=== PATIENT | female | born 1975 | race Caucasian/White ===

== ENCOUNTER 2023-10-17 18:23 | Outpatient (CLI) | payer OTHER, SELFPAY ==
--- NOTE | 2023-11-14 14:38 | ONC.NURNOTE ---
[facility] has attempted to contact patient multiple times with no return phone call. PCP notified.
== END 2023-10-17 18:24 | disposition home or self-care (01) ==
PROVIDERS: PCP Nurse Practitioner Family; Visit Provider Nurse Practitioner Family
DX: R06.09 Other forms of dyspnea (principal); R00.2 Palpitations; R53.83 Other fatigue
CPT/HCPCS: 83540; 83550; 84443; 85025

== ENCOUNTER 2025-04-15 10:08 | Outpatient (CLI) | payer OTHER, SELFPAY | END 2025-04-15 10:09 | disposition home or self-care (01) | PROVIDERS: PCP Nurse Practitioner Family; Visit Provider Nurse Practitioner Family | DX: Z01.818 Encounter for other preprocedural examination (principal) | CPT/HCPCS: 80053; 85025 ==

== ENCOUNTER 2025-04-17 06:31 | Outpatient (CLI) | payer OTHER, SELFPAY ==
--- NOTE | 2025-04-17 07:42 | P.ANES_ITS ---
Anesthesia Charges Start Date/Time Anesthesia Start Date: 04/17/25 Anesthesia Start Time: 07:12 Stop Date/Time Anesthesia Stop Date: 04/17/25 Anesthesia Stop Time: 07:39 Coding CPT Codes CPT Codes: DAVID LWR INTST SCR COLSC - 12006 ([id number]) P1 - NORMAL HEALTHY PATIENT, QK - LOOKBACK COORDINATOR 2-4 CNCRNT ANES PROC, QX - BUSINESS CONTINUITY ANALYST SVC W/ MED DIRECTION
--- NOTE | 2025-04-17 07:42 | W.ANESCHARGE ---
Anesthesia Charges Start Date/Time Anesthesia Start Date: 04/17/25 Anesthesia Start Time: 07:12 Stop Date/Time Anesthesia Stop Date: 04/17/25 Anesthesia Stop Time: 07:39 Coding CPT Codes CPT Codes: DAVID LWR INTST SCR COLSC - 36832 ([id number]) P1 - NORMAL HEALTHY PATIENT, QK - BOOK STORE ASSOCIATE 2-4 CNCRNT ANES PROC, QX - TOP DYEING MACHINE LOADER SVC W/ MED DIRECTION
--- NOTE | 2025-04-17 08:32 | P.ANES_ITS ---
Anesthesia Charges Start Date/Time Anesthesia Start Date: 04/17/25 Anesthesia Start Time: 07:12 Stop Date/Time Anesthesia Stop Date: 04/17/25 Anesthesia Stop Time: 07:39 Coding CPT Codes CPT Codes: DAVID LWR INTST SCR COLSC - 90051 ([id number]) P1 - NORMAL HEALTHY PATIENT, QK - DELIVERY DRIVER/CUSTOMER SERVICE 2-4 CNCRNT ANES PROC, QX - MEDICAL HOSPITAL SALES SVC W/ MED DIRECTION
--- NOTE | 2025-04-17 08:32 | W.ANESCHARGE ---
Anesthesia Charges Start Date/Time Anesthesia Start Date: 04/17/25 Anesthesia Start Time: 07:12 Stop Date/Time Anesthesia Stop Date: 04/17/25 Anesthesia Stop Time: 07:39 Coding CPT Codes CPT Codes: DAVID LWR INTST SCR COLSC - 24227 ([id number]) P1 - NORMAL HEALTHY PATIENT, QK - RAILROAD WORKER 2-4 CNCRNT ANES PROC, QX - UNIT SUPPORT REPRESENTATIVE SVC W/ MED DIRECTION
== END 2025-04-17 06:32 | disposition home or self-care (01) ==
PROVIDERS: PCP Nurse Practitioner Family; Visit Provider Surgery
DX: Z12.11 Encounter for screening for malignant neoplasm of colon (principal); K64.8 Other hemorrhoids; K57.30 Diverticulosis of large intestine without perforation or abscess without bleeding
CPT/HCPCS: 00812; 45378; J2704

== ENCOUNTER 2025-05-05 06:17 | Day surgery (SDC) | payer OTHER, SELFPAY ==
[2025-05-05] VITALS (24 sets, daily range): BP systolic 100–159; BP diastolic 52–90; PULSE 60–98; RESP 12–18; TEMP 36.2–36.8; O2SAT 88–100; BMI 27.1
[2025-05-05 06:41] LABS: Ur HCG Qualitative* Negative (Negative)
[2025-05-05] MEDS: SODIUM CHLORIDE 0.9 % (FLUSH) 10 ML SYRINGE IVF (07:00)
--- NOTE | 2025-05-05 07:22 | W.PM.H&PU ---
History & Physical Update History & Physical Update H&P Reviewed and patient assessed: No changes noted
--- NOTE | 2025-05-05 07:22 | PM.GSPRC ---
Operative Note Date of procedure: 05/05/25 Pre-op diagnosis: 1. Prolapsing external and internal hemorrhoids. Post-op diagnosis: Same Type of Procedure: 1. Three quadrant hemorrhoidectomy. Indications: 49-year-old female was seen in clinic for evaluation of hemorrhoids. Patient stated that for years she has been having trouble with enlarged hemorrhoidal tissue. She felt tissue outside and was each bowel movement she notices the tissue protruded through her anus. Sometimes she notices protrusion of her tissue even without having bowel movements. Patient states that after having a bowel movement she has discomfort and has to push the internal hemorrhoid in. She also noticed bleeding with bowel movements. The bleeding is noted to be bright and in the toilet bowl. Sometimes the bleeding is ?squirting?. 1 year ago she was seen in clinic and had rubber-band ligationx2. Patient felt like her symptoms improved a little bit but she continues to have prolapsed hemorrhoids that were bleeding. Patient has bowel movements are every day or every other day. She denied straining but she felt urge to have a bowel movement frequently. patient maximized her conservative treatment. On clinical exam she was found to have enlarged external hemorrhoidal tissue in 3 quadrant. Digital rectal exam and anoscopy were somewhat uncomfortable but noted enlarged internal hemorrhoidal tissue almost circumferentially. Given patient's clinical history and presence of enlarged external hemorrhoidal tissue in association with internal hemorrhoids, I recommended to proceed with 3 quadrant hemorrhoidectomy. The procedure was discussed in detail. The risks associated with procedure including infection, bleeding, recurrence, and temper incontinence were all discussed with the patient, and she agreed to proceed. Procedure Description: After discussing the risks and benefits of the procedure, the patient signed informed consent.? The operative site was marked and the patient was brought to the operating room. Patient was intubated by Anesthesia. She was then placed prone on the operating table with all pressure points padded. The operative site was then prepped and draped in the usual sterile fashion.? A time-out was then performed. External examination, digital rectal examination, and anoscopic examination were all done and revealed significantly redundant external and internal hemorrhoidal tissue in the right anterior lateral, left lateral, posterior midline, and lesser enlargement of the right lateral hemorrhoidal column. Based on this assessment, plans were made for a 3-quadrant closed hemorrhoidectomy to remove the largest redundant tissue. Attention was initially directed to the largest area of involvement and then went to the progressively smaller areas and all were handled in the same fashion. An elliptical incision was made with a needle tip electrocautery from the anoderm up into the anal canal just above the dentate line. Careful dissection of the hemorrhoid complex was done in the plane between the internal anal sphincter and the submucosal vascular plexus up to just above the dentate line in each quadrant described above. Having established the proper plane, the hemorrhoidal tissue was then excised with the Ligasure device and sent to Pathology for analysis. Care was taken to preserve mucosa for a tension-free closure. The internal sphincter fibers were visualized at the base of the wound and were intact. The anal canal mucosa was then first reapproximated with a running 3-0 Vicryl suture. The rest of the incision was closed in a running locked manner starting at the Vicryl knot with 3-0 chromic suture, coming out to the anoderm and then running back up in a simple fashion and tying down at the apex. We first excised posterior midline hemorrhoidal tissue, then right anterior lateral hemorrhoidal tissue, and finally left lateral hemorrhoidal tissue. At the end of the procedure bleeding was seen at the posterior midline apex of the internal hemorrhoid with some residual internal hemorrhoidal tissue. This was further excised with LigaSure device. This incision was closed with 3-0 Vicryl suture and additional 3-0 Vicryl suture. Pressure was held for hemostasis. A mixture of bupivacaine with epinephrine and Exparel was injected for bilateral pudendal nerve block and perianally. A pressure dressing was then created with gauze and Xeroform and placed in the anal canal for hemostasis. This pressure dressing was subsequently removed in the PACU. All counts were correct at the end of the case. ? The patient was then woken and transported to the recovery area in stable condition. ? The patient tolerated the procedure well. Findings: Moderately enlarged external hemorrhoidal tissue and enlarged internal hemorrhoidal tissue. Anesthesia: GETA Surgeon: Christina Bucio MD Estimated blood loss (mL): 20 Additional Specimen Information: 1. Hemorrhoids. Condition: stable Disposition: PACU
[2025-05-05] MEDS: LACTATED RINGERS 500 ML 500 ML 100 ML IV (07:27)
[2025-05-05] MEDS: BUPIVACAINE 0.25 %/EPI 1:200K 30 ml INJECTION (09:00)
[2025-05-05] MEDS: BUPIVACAINE LIPOSOME 133 MG/10 ML INJ INFILTRATI (09:00)
--- NOTE | 2025-05-05 09:56 | P.ANES_ITS ---
Anesthesia Charges Start Date/Time Anesthesia Start Date: 05/05/25 Anesthesia Start Time: 08:27 Stop Date/Time Anesthesia Stop Date: 05/05/25 Anesthesia Stop Time: 09:58 Coding CPT Codes CPT Codes: ANESTH ANORECTAL SURGERY - 09306 ([id number]) P1 - NORMAL HEALTHY PATIENT, QK - STITCH WELDER 2-4 CNCRNT ANES PROC, QX - BANK TELLER MACHINE MECHANIC SVAnamaria W/ MED DIRECTION
--- NOTE | 2025-05-05 09:56 | W.ANESCHARGE ---
Anesthesia Charges Start Date/Time Anesthesia Start Date: 05/05/25 Anesthesia Start Time: 08:27 Stop Date/Time Anesthesia Stop Date: 05/05/25 Anesthesia Stop Time: 09:58 Coding CPT Codes CPT Codes: ANESTH ANORECTAL SURGERY - 07363 ([id number]) P1 - NORMAL HEALTHY PATIENT, QK - DIMETHYLANILINE SULFATOR OPERATOR 2-4 CNCRNT ANES PROC, QX - BRONC BUSTER SVAnamaria W/ MED DIRECTION
[2025-05-05] MEDS: LACTATED RINGERS 500 ML 500 ML 35 ML IV (10:41)
--- NOTE | 2025-05-05 10:45 | P.ANES_ITS ---
Anesthesia Charges Start Date/Time Anesthesia Start Date: 05/05/25 Anesthesia Start Time: 08:27 Stop Date/Time Anesthesia Stop Date: 05/05/25 Anesthesia Stop Time: 09:58 Coding CPT Codes CPT Codes: ANESTH ANORECTAL SURGERY - 54879 ([id number]) P1 - NORMAL HEALTHY PATIENT, QK - TREAD BOOKER 2-4 CNCRNT ANES PROC, QX - SUGAR REFINER SVAnamaria W/ MED DIRECTION
--- NOTE | 2025-05-05 10:45 | W.ANESCHARGE ---
Anesthesia Charges Start Date/Time Anesthesia Start Date: 05/05/25 Anesthesia Start Time: 08:27 Stop Date/Time Anesthesia Stop Date: 05/05/25 Anesthesia Stop Time: 09:58 Coding CPT Codes CPT Codes: ANESTH ANORECTAL SURGERY - 53658 ([id number]) P1 - NORMAL HEALTHY PATIENT, QK - CARBIDE TOOL MAKER 2-4 CNCRNT ANES PROC, QX - MARKETING PROJECT SPECIALIST SVAnamaria W/ MED DIRECTION
--- NOTE | 2025-05-05 10:58 | SUR.PHASEI ---
patient met discharge criteria per anesthesia
[2025-05-05] MEDS: HYDROCODONE-ACETAMIN 5-325 MG 1 TAB PO (11:10)
== END 2025-05-05 14:14 | disposition home or self-care (01) ==
PROVIDERS: Anesthesiology; PCP Nurse Practitioner Family; Visit Provider Surgery
PROC: (CPT 46260; principal; 2025-05-05 07:30)
DX: K64.8 Other hemorrhoids (principal)
CPT/HCPCS: 46260; 00902; 81025; 88304; A9270; J0330; J0666; J1100; J1171; J1885; J2250; J2371; J2405; J2704; J2710; J3010; J3490; J7120